=== PATIENT | male | born 2005 | race Caucasian/White ===

== ENCOUNTER 2025-03-27 09:24 | Emergency (ER) | payer MEDICAID, SELFPAY ==
[2025-03-27 09:32] VITALS: BP 149/74; PULSE 95; RESP 16; TEMP 36.9; O2SAT 97
--- NOTE | 2025-03-27 09:51 | ED.GENADUL_ITS ---
Discharge Plan Disposition Patient Disposition: Home Discharge Details Clinical Impression: Pharyngitis, Posterior cervical adenopathy Primary Care Provider: Unknown,Unknown ED Provider: Jeromy Guerrero Home Meds and New Rx's Prescriptions: No Action No Known Home Meds Discharge Instructions Instructions: Viral Pharyngitis, Lymphadenitis (DC), Sore Throat, Adult ED Additional Instructions: Please follow-up with your primary care provider regarding your visit to the emergency department today. Be sure to discuss results of all test performed here today to include radiology, and laboratory testing as well as results for any pending cultures. Should your symptoms worsen, or if you develop new concerning symptoms, please return immediately emergency department for further evaluation. HPI General Date/Time Provider Initiated Documentation: 03/27/25 09:43 . HPI Narrative: MDM/Narrative: Initial Assessment: 19-year-old male with sore throat, swollen lymph node, and neck stiffness. No fever, chills, headache, rhinorrhea, or significant cough. M ild pain with swallowing localized to the back of the throat. Symptoms began yesterday. Differential Diagnosis: - Viral pharyngitis: Likely due to sore throat, swollen lymph node, and absence of significant cough. Plan: Symptomatic treatment, monitor for improvement. - Streptococcal pharyngitis: Borderline for strep testing due to sore throat and tonsillar swelling. Plan: Rapid strep test, treat with amoxicillin if positive. ED Course: Rapid strep test performed. Final Assessment: Symptoms suggest viral etiology with appropriate immune response. No peritonsillar or retropharyngeal abscesses. Rapid strep test conducted to rule out streptococcal infection. Clinical Impression: Pharyngitis Disposition: Follow-Up: Return if lymph node swelling persists beyond 2 weeks. This document was created with assistance from [employer]by [employer]. The patient consented to its use. HPI: The patient is a 19-year-old male presenting with acute pharyngitis, cervical lymphadenopathy, and neck stiffness, which commenced yesterday. He reports mild odynophagia localized to the posterior pharynx. The patient denies experiencing pyrexia, chills, cephalalgia, or rhinorrhea. He has a slight cough and no known exposure to sick contacts. The patient is employed at [employer]. ROS: Negative besides as mentioned above Exam: Vital signs: Reviewed. General Appearance: Alert and oriented. No acute distress. HEENT: Pharyngeal anatomy visualized without obstruction. No peritonsillar or retropharyngeal abscess. There is a palpable tender posterior cervical lymph node on the left side Neck: Swollen right lymph node with asymmetry. No fever. Respiratory: No Respiratory distress. No tachypnea. Cardiovascular: RRR, no edema. Gastrointestinal: Soft, nondistended, No rebound tenderness. Lymphatic: Swollen right cervical lymph node. Skin: Warm and dry, no rash. Neurological: Normal Gait, Grossly intact. Psychiatric: Appropriate for situation. Labs: Rapid strep: Negative Related Data Home Medications ?Medication ?Instructions ?Recorded ?Confirmed Unknown [No Known Home Meds] 03/27/25 1 Allergies Allergy/AdvReac Type Severity Reaction Status Date / Time No Known Allergies Allergy Unverified 03/27/25 09:39 General Stated Complaint: Sorethroat MYLES: 4 Course Vital Signs Vital signs: Vital Signs Temperature 36.9 C 03/27/25 09:32 Pulse 95 H 03/27/25 09:32 Respiratory Rate 16 03/27/25 09:32 Blood Pressure 149/74 H 03/27/25 09:32 Pulse Oximetry 97 03/27/25 09:32 Temperature 36.9 C 03/27/25 09:32 Temperature Source Temporal Artery Scan 03/27/25 09:32 Pulse 95 H 03/27/25 09:32 Respiratory Rate 16 03/27/25 09:32 Blood Pressure 149/74 H 03/27/25 09:32 Pulse Oximetry 97 03/27/25 09:32 Oxygen Delivery Method Room Air 03/27/25 09:32 Oxygen Flow Rate 0 03/27/25 09:32 PFSH All Active Problems (Updated 03/27/25 @ 11:03 by Jeromy Guerrero MD) Posterior cervical adenopathy (Acute) Pharyngitis (Acute) Social History Smoking/Tobacco Use Status: Current every day Tobacco Type: e-cigarettes Smoking risk assessment performed?: Yes Alcohol Intake: never Substance use type: does not use
== END 2025-03-27 11:56 | disposition home or self-care (01) ==
PROVIDERS: Emergency Provider General Practice
DX: J02.9 Acute pharyngitis, unspecified (principal); L04.0 Acute lymphadenitis of face, head and neck
CPT/HCPCS: 99282; 99283; 87880; 87081